=== PATIENT | female | born 1975 | race Two or more races ===

== ENCOUNTER 2023-11-10 22:38 | Emergency (ER) | payer MEDICAID ==
[~2023-11-10] VITALS: Ht 160 cm; Wt 85.3 kg
[2023-11-11] MEDS ORDERED: CLIN300C70 PO (04:01)
[2023-11-11] MEDS ORDERED: ACET500T58 PO (04:01)
[2023-11-11 04:04] VITALS: BP 136/90; PULSE 66; RESP 15; TEMP 97.5
[2023-11-11 05:03] VITALS: O2SAT 100
== END 2023-11-11 05:15 | disposition home or self-care (01) ==
LOC: ER 22:38
DX: D36.11 Benign neoplasm of peripheral nerves and autonomic nervous system of face, head, and neck (principal); E11.9 Type 2 diabetes mellitus without complications; Z79.2 Long term (current) use of antibiotics; Z79.899 Other long term (current) drug therapy
CPT/HCPCS: 70450